=== PATIENT | female | born 1950 | race American Indian/Alaskan Native ===

== ENCOUNTER 2016-10-22 08:01 | Day surgery (SDC) | payer MEDICARE ==
[2016-10-20 09:26] VITALS: BMI 43.0
[2016-10-22] MEDS ORDERED: Propofol 10 mg/ml Inj (20 ML) ONE (10:19)
[2016-10-22] MEDS ORDERED: Sodium Chloride 0.9% 1,000 ML IV SCH (10:30)
[2016-10-22 11:24] VITALS: TEMP 97.5
[2016-10-22 11:52] VITALS: O2SAT 97
[2016-10-22 11:53] VITALS: BP 116/44; PULSE 51; RESP 14
== END 2016-10-22 12:15 | disposition home or self-care (01) ==
LOC: C.ENDO 08:01
PROVIDERS: ATTEND Internal Medicine Gastroenterology
DX: Z12.11 Encounter for screening for malignant neoplasm of colon (principal); K64.1 Second degree hemorrhoids; E11.9 Type 2 diabetes mellitus without complications; I10 Essential (primary) hypertension; J45.909 Unspecified asthma, uncomplicated
CPT/HCPCS: 82948; G0121; J2704; J3010; J7040

== ENCOUNTER 2017-04-04 08:43 | Emergency (ER) | payer MEDICARE ==
[2017-04-04 08:43] VITALS: BMI 42.8
--- NOTE | 2017-04-04 08:55 | C.PDOC ---
History Of Present Illness 66-YEAR-OLD FEMALE, PRESENTS TO THE EMERGENCY DEPARTMENT WITH COMPLAINTS OF NEW ONSET L UPP EXT PAIN X 3 WEEKS. NO TRAUMA. WORSE HAND > ELBOW. WORSE W ROM. NO RELIEF W ALEVE "NORMALLY THAT WORKS" AND ULTRAM. EXAM NAD NONTOXIC EXT ATRAUM +REPRODUC PAIN W ROM. NO FOCAL TEND. NO GROSS SWELL SKIN NEG NEURO INTACT Time Seen by Provider: 04/04/17 08:52 Chief Complaint (Nursing): Upper Extremity Problem/Injury History Per: Patient History/Exam Limitations: no limitations Onset/Duration Of Symptoms: Days (3 WEEKS) Current Symptoms Are (Timing): Still Present Severity: Moderate Past Medical History Reviewed: Historical Data, Nursing Documentation, Vital Signs Vital Signs: Last Vital Signs Temp 98.4 F 04/04/17 09:54 Pulse 68 04/04/17 09:54 Resp 20 04/04/17 09:54 BP 146/92 H 04/04/17 09:54 Pulse Ox 100 04/04/17 09:56 - Medical History PMH: HTN, Peripheral Edema Denies: Chronic Kidney Disease Surgical History: Appendectomy (1992) Family History: States: No Known Family Hx - Social History Hx Alcohol Use: No Hx Substance Use: No - Immunization History Hx Tetanus Toxoid Vaccination: Yes Hx Influenza Vaccination: Yes Hx Pneumococcal Vaccination: Yes Review Of Systems Except As Marked, All Systems Reviewed And Found Negative. Constitutional: Negative for: Fever Respiratory: Negative for: Shortness of Breath Gastrointestinal: Negative for: Vomiting Musculoskeletal: Positive for: Arm Pain (LEFT). Negative for: Back Pain Neurological: Negative for: Weakness, Numbness, Headache, Dizziness Physical Exam - Physical Exam Appears: Non-toxic, No Acute Distress Skin: Warm, Dry, No Rash Head: Atraumatic Oral Mucosa: Moist Lips: Normal Appearing Neck: Normal ROM Cardiovascular: Rhythm Regular, No Murmur Respiratory: Normal Breath Sounds, No Accessory Muscle Use Extremity: Normal ROM, Other ( ATRAUM +REPRODUC PAIN W ROM. NO FOCAL TEND. NO GROSS SWELL) Neurological/Psych: Oriented x3, Normal Speech ED Course And Treatment O2 Sat by Pulse Oximetry: 100 Disposition Counseled Patient/Family Regarding: Diagnosis, Need For Followup, Rx Given - Disposition Referrals: YOUR,PMD [Other] [facility] [Outside] Disposition: HOME/ ROUTINE Disposition Time: 09:35 Condition: IMPROVED Prescriptions: Acetaminophen/Codeine [Tylenol/Codeine 300 MG/30 MG] 2 tab PO Q6H #20 tab Instructions: Osteoarthritis (ED) Forms: [facility] (Mongolian) - Clinical Impression Clinical Impression: Arthralgia - Scribe Statement The provider has reviewed the documentation as recorded by the Scribe (HEIDI DESAI) All medical record entries made by the Scribe were at my direction and personally dictated by me. I have reviewed the chart and agree that the record accurately reflects my personal performance of the history, physical exam, medical decision making, and the department course for this patient. I have also personally directed, reviewed, and agree with the discharge instructions and disposition.
[2017-04-04] MEDS ORDERED: Acetaminophen-Codeine 300/30 mg Tab PO STA (09:39)
[2017-04-04] MEDS ORDERED: Alum-Mag Hydrox-Simethicone Susp (30 mL) PO STA (09:42)
[2017-04-04] MEDS ORDERED: Aluminum Hydroxide/Magnesium Hydroxide Susp (30 mL) ONE (09:46)
[2017-04-04] MEDS ORDERED: Acetaminophen-Codeine 300/30 mg Tab PO ONE (09:46)
[2017-04-04 09:55] VITALS: BP 146/92; PULSE 68; RESP 20; TEMP 98.4
[2017-04-04 09:57] VITALS: O2SAT 100
== END 2017-04-04 10:00 | disposition home or self-care (01) ==
LOC: C.ER 08:43
DX: M25.50 Pain in unspecified joint (principal); I10 Essential (primary) hypertension
CPT/HCPCS: 96372; 99283; J1885